=== PATIENT | male | born 1965 | race Caucasian/White ===

== ENCOUNTER → 2016-11-08 | Outpatient (CLI) | payer OTHER | LOC: HEART 5 07:52 | DX: R07.9 Chest pain, unspecified (principal); E78.5 Hyperlipidemia, unspecified; I10 Essential (primary) hypertension; G35 Multiple sclerosis | CPT/HCPCS: 78452; 93306; A9502; J2785 ==

== ENCOUNTER → 2017-01-04 | Outpatient (CLI) | payer OTHER | LOC: EMI 08:56 | DX: G35 Multiple sclerosis (principal); M47.892 Other spondylosis, cervical region | CPT/HCPCS: 72156; A9577; J7050 ==

== ENCOUNTER → 2020-08-06 | Outpatient (CLI) | payer OTHER | LOC: OPSV 09:00 | DX: G35 Multiple sclerosis (principal) | CPT/HCPCS: 96365; 96375; J2323; J2930 ==

== ENCOUNTER → 2020-09-04 | Outpatient (CLI) | payer OTHER ==
[~2020-09-04] VITALS: Ht 182.9 cm; Wt 103.9 kg
== END ==
LOC: OPSV 09-03 09:00
DX: G35 Multiple sclerosis (principal)
CPT/HCPCS: 96365; 96374; 96375; J2323; J2930; Q0177

== ENCOUNTER → 2020-10-14 | Outpatient (CLI) | payer OTHER ==
[~2020-10-14] VITALS: Ht 182.9 cm; Wt 103.9 kg
[2020-10-14 12:58] LABS: HEMOGLOBIN 13.8 gm/dl (14.0-17.5); RED BLOOD COUNT 4.49 M/UL (4.20-5.50); WHITE BLOOD COUNT 14.4 K/UL (4.5-11.0)
[2020-10-14 13:17] LABS: BUN/CREATININE RATIO 15 (0-10)
[2020-10-23 10:13] LABS: JCV ANTIBODY Negative (.)
== END ==
LOC: OPSV 10-02 10:00
PROVIDERS: Psychiatry & Neurology Neurology
DX: G35 Multiple sclerosis (principal)
CPT/HCPCS: 80053; 85025; 96365; 96375; J2323; J2930; Q0177

== ENCOUNTER → 2020-11-11 | Outpatient (CLI) | payer OTHER ==
[~2020-11-11] VITALS: Ht 182.9 cm; Wt 101.6 kg
== END ==
LOC: OPSV 10:00
DX: G35 Multiple sclerosis (principal)
CPT/HCPCS: 96365; 96375; J2323; J2930; Q0177

== ENCOUNTER → 2020-12-09 | Outpatient (CLI) | payer OTHER ==
[~2020-12-09] VITALS: Ht 182.9 cm; Wt 103.9 kg
== END ==
LOC: OPSV 10:14
DX: G35 Multiple sclerosis (principal)
CPT/HCPCS: 96365; 96375; J2323; J2930; Q0177

== ENCOUNTER → 2021-01-15 | Outpatient (CLI) | payer OTHER | LOC: CT 09:26 → OPSV 09:26 → CT 09:30 | DX: E86.0 Dehydration (principal); R93.41 Abnormal radiologic findings on diagnostic imaging of renal pelvis, ureter, or bladder; N28.89 Other specified disorders of kidney and ureter | CPT/HCPCS: 74170; 96360; 96361; Q9967 ==

== ENCOUNTER → 2021-05-07 | Outpatient (CLI) | payer OTHER | LOC: MRI 05-06 13:00 → EMI 05-06 14:00 → MRI 05-06 14:00 | DX: G35 Multiple sclerosis (principal); M50.321 Other cervical disc degeneration at C4-C5 level; R90.89 Other abnormal findings on diagnostic imaging of central nervous system | CPT/HCPCS: 70553; 72156; A9577 ==

== ENCOUNTER → 2021-08-11 | Outpatient (CLI) | payer OTHER ==
[~2021-08-11] VITALS: Ht 182.9 cm; Wt 101.6 kg
[2021-08-11 11:49] LABS: HEMOGLOBIN 13.4 gm/dl (14.0-17.5); RED BLOOD COUNT 4.41 M/UL (4.20-5.50)
== END ==
LOC: OPSV 09:14
PROVIDERS: Psychiatry & Neurology Neurology
DX: Z12.89 Encounter for screening for malignant neoplasm of other sites (principal); C64.2 Malignant neoplasm of left kidney, except renal pelvis; G35 Multiple sclerosis; R93.41 Abnormal radiologic findings on diagnostic imaging of renal pelvis, ureter, or bladder; K80.20 Calculus of gallbladder without cholecystitis without obstruction; R91.8 Other nonspecific abnormal finding of lung field
CPT/HCPCS: 36415; 71250; 74183; 80053; 82565; 85025; 96365; 96375; A9577; J2323; J2930; Q0177

== ENCOUNTER → 2021-09-08 | Outpatient (CLI) | payer OTHER | LOC: OPSV 09:54 | DX: G35 Multiple sclerosis (principal) | CPT/HCPCS: 96365; 96375; J2323; J2930; Q0177 ==

== ENCOUNTER → 2021-10-20 | Outpatient (CLI) | payer OTHER ==
[~2021-10-20] VITALS: Ht 182.9 cm; Wt 103.9 kg
== END ==
LOC: OPSV 10-06 09:00
DX: G35 Multiple sclerosis (principal)
CPT/HCPCS: 96365; 96375; J2323; J2930; Q0177

== ENCOUNTER → 2021-11-17 | Outpatient (CLI) | payer OTHER ==
[~2021-11-17] VITALS: Ht 182.9 cm; Wt 103.9 kg
[2021-11-17 10:47] LABS: HEMOGLOBIN 15.4 gm/dl (14.0-17.5); RED BLOOD COUNT 5.09 M/UL (4.20-5.50); WHITE BLOOD COUNT 11.6 K/UL (4.5-11.0)
== END ==
LOC: OPSV 09:57
PROVIDERS: Psychiatry & Neurology Neurology
DX: G35 Multiple sclerosis (principal)
CPT/HCPCS: 80053; 85027; 96365; 96375; J2323; J2930; Q0177

== ENCOUNTER → 2021-12-15 | Outpatient (CLI) | payer OTHER ==
[~2021-12-15] VITALS: Ht 182.9 cm; Wt 101.6 kg
== END ==
LOC: OPSV 09:40
DX: G35 Multiple sclerosis (principal); Z88.0 Allergy status to penicillin; Z88.8 Allergy status to other drugs, medicaments and biological substances
CPT/HCPCS: 96365; 96375; J2323; J2930; Q0177

== ENCOUNTER → 2022-02-08 | Outpatient (CLI) | payer OTHER ==
[2022-02-08 11:14] LABS: HEMOGLOBIN 12.6 gm/dl (14.0-17.5); RED BLOOD COUNT 4.24 M/UL (4.20-5.50); WHITE BLOOD COUNT 14.9 K/UL (4.5-11.0)
== END ==
LOC: OPSV 10:00
PROVIDERS: Psychiatry & Neurology Neurology
DX: G35 Multiple sclerosis (principal); C64.2 Malignant neoplasm of left kidney, except renal pelvis
CPT/HCPCS: 74183; 80053; 85027; 96365; 96375; A9577; J2323; J2930; Q0177

== ENCOUNTER → 2022-03-31 | Outpatient (CLI) | payer OTHER | LOC: CT 13:47 | DX: C64.2 Malignant neoplasm of left kidney, except renal pelvis (principal); D89.0 Polyclonal hypergammaglobulinemia; E86.0 Dehydration; E27.8 Other specified disorders of adrenal gland | CPT/HCPCS: 71250 ==